=== PATIENT | male | born 1975 | race Asian ===

== ENCOUNTER 2017-08-31 00:35 | Emergency (ER) | payer MEDICAID ==
[~2017-08-31] VITALS: Ht 160 cm; Wt 59.4 kg
[2017-08-31 00:40] VITALS: Ht 160 cm; Wt 59.4 kg
[2017-08-31 01:49] VITALS: BP 113/79
== END 2017-08-31 01:49 | disposition home or self-care (01) ==
LOC: ED 00:35
DX: L02.01 Cutaneous abscess of face (principal)
CPT/HCPCS: 99406; J2001

== ENCOUNTER 2017-09-02 17:25 | Emergency (ER) | payer MEDICAID ==
[~2017-09-02] VITALS: Ht 160 cm; Wt 59.0 kg
[2017-09-02 17:37] VITALS: Ht 160 cm; Wt 59.0 kg
[2017-09-02 18:05] VITALS: BP 129/90
== END 2017-09-02 18:05 | disposition home or self-care (01) ==
LOC: ED 17:25
DX: Z48.02 Encounter for removal of sutures (principal)